=== PATIENT | female | born 1955 | race Caucasian/White ===

== ENCOUNTER 2018-04-24 11:00 | Day surgery (SDC) | payer OTHER, BC ==
[~2018-04-24] VITALS: Ht 170.2 cm; Wt 131.5 kg
[~2018-04-24 11:00] MED LIST: LEVOTHYROXINE100 MCG PO; OXYBUTYNIN CHLO10 MG PO
[2018-04-24] MEDS ORDERED: FLAXSEED OIL1000 M1 PO (11:35)
[2018-04-24] MEDS ORDERED: ASPIR-LOW81 MG PO (11:35)
[2018-04-24] MEDS ORDERED: GLUCOSAMINE-CH1 EA19 PO (11:36)
[2018-04-24] MEDS ORDERED: FISH OIL 1,0001 EAC3 PO (11:36)
[2018-04-24] MEDS ORDERED: MULTIVITAMINS1 EAC8 PO (11:36)
--- NOTE | 2018-04-24 15:18 | NUR ---
04/24/18 Kasia8 Vickie Gamble 1511 PT ARRIVED TO PACU ON 2L NC, PT DROWSY AND TALKING. PT DENIES NAUSEA AND PAIN. 1517 PT SITTING IN HIGH FOWLERS, O2 REMOVED.
--- NOTE | 2018-04-25 22:04 | OR ---
[facility] [address], [place] [address] Signed DATE OF OPERATION: 04/24/2018 SURGEON: Laura Vasquez MD PREOPERATIVE DIAGNOSES: 1. Episodic dysphagia. 2. Colon screening. POSTOPERATIVE DIAGNOSES: 1. Normal upper endoscopy. 2. Normal colonoscopy. PROCEDURE: 1. Esophagogastroduodenoscopy with biopsy. 2. Total colonoscopy to the cecum. ANESTHESIA: Intravenous sedation fentanyl 200 mcg and Versed 9 mg. INDICATION: This 63-year-old white woman is a patient of Brina Marcus of [facility] and has been referred for colonoscopy for screening. She has had colonoscopy in the past. She is symptom-free. Additionally, she complains of episodic dysphagia, and sometimes trouble breathing. She is thought possibly to have reflux symptoms. She is taking no medications for reflux, and does not have clinical reflux otherwise. She has no family history of esophageal, colon cancer, or stomach cancer. She is admitted at this time to undergo upper endoscopy and colonoscopy. She understands the risks of bleeding, infection, perforation, and so on. FINDINGS: On upper endoscopy, there was no finding of concern of the esophagus, stomach, or duodenum. CLOtest was negative. Biopsies were taken of the duodenum to assess for celiac disease. On colonoscopy, the prep was excellent. Complete colonoscopy was undertaken to the cecum. There was no sign of polyps, diverticular formation, colitis, or cancer. DESCRIPTION OF PROCEDURE: The patient was brought to the endoscopy suite, and given topical Hurricaine spray hypopharyngeal anesthesia and placed in lateral decubitus position. She was given Electronically Signed By: LAURA VASQUEZ MD 04/25/18 2204 PATIENT NAME: JUAN ANTONIO THIBODEAUX OPERATIVE REPORT DATE OF : 59 REPORT #: [id number] PHYSICIAN: LAURA VASQUEZ MD PCP: BRINA MARCUS NP REPORT IS CONFIDENTIAL AND NOT TO BE RELEASED WITHOUT AUTHORIZATION [facility] [address], [place] [address] Signed intravenous antibiotics previously. After satisfactory sedation, a bite block was placed and an Olympus video upper endoscope passed in the hypopharynx. The vocal cords were visualized and found to be normal. Scope was advanced to the esophagus throughout its length. It was normal. Scope was passed to the stomach was insufflated with air. Rugal folds were normal. Antral motility normal. The pylorus normal. Scope was passed through the pylorus into the duodenum, which was entirely normal. Biopsies were taken of the distal portion to assess for celiac disease. The scope was withdrawn. Biopsies taken of the antrum for both TRISH and pathologic testing. Retroflexed view was undertaken showing a normal flap valve. The scope was withdrawn to the distal esophagus where biopsies were obtained there, as well as the midesophagus to assess first eosinophilic esophagitis. The scope was then removed. The table was rotated and additional plans made for colonoscopy. Additional sedation was given. Digital rectal examination was found to be normal except for some minimal external hemorrhoidal changes. An Olympus video colonoscope was passed in the rectum and manipulated throughout the colon ultimately intubating the cecum itself. The ileocecal valve and appendiceal orifice were normal. The scope was withdrawn from that point, and examination throughout showed no sign of abnormality, specifically no polyps, diverticular formation, colitis, or cancer. Retroflex view was normal as well. Scope was removed. The patient was taken to recovery in good condition. CONCLUDING DIAGNOSIS: Normal upper endoscopy and colonoscopy. PLAN: Recommend repeat colonoscopy in 10 years, sooner if clinically indicated. We will review her pathology reports regarding dysphagia, but if her symptoms in that regard should worsen or become more prominent, she will let me know and motility testing may be considered. MD ESSIE Colón/MODL /[id number] Electronically Signed By: LAURA VASQUEZ MD 04/25/18 2204 PATIENT NAME: JUAN ANTONIO THIBODEAUX OPERATIVE REPORT DATE OF : 59 REPORT #: [id number] PHYSICIAN: LAURA VASQUEZ MD PCP: BRINA MARCUS NP REPORT IS CONFIDENTIAL AND NOT TO BE RELEASED WITHOUT AUTHORIZATION [address] [address] Signed cc: Brina Marcus NP Copies: BRINA MARCUS NP ~ Electronically Signed By: LAURA VASQUEZ MD 04/25/18 2204 PATIENT NAME: JUAN ANTONIO THIBODEAUX OPERATIVE REPORT DATE OF : 59 REPORT #: [id number] PHYSICIAN: LAURA VASQUEZ MD PCP: BRINA MARCUS NP REPORT IS CONFIDENTIAL AND NOT TO BE RELEASED WITHOUT AUTHORIZATION
== END 2018-04-24 15:50 | disposition home or self-care (01) ==
LOC: DS 11:00 → OPS 11:00
PROVIDERS: Surgery
PROC: 0DB78ZX Excision of Stomach, Pylorus, Via Natural or Artificial Opening Endoscopic, Diagnostic (ICD-10-PCS; 2018-04-24)
PROC: 0DB28ZX Excision of Middle Esophagus, Via Natural or Artificial Opening Endoscopic, Diagnostic (ICD-10-PCS; 2018-04-24)
PROC: 0DB38ZX Excision of Lower Esophagus, Via Natural or Artificial Opening Endoscopic, Diagnostic (ICD-10-PCS; 2018-04-24)
PROC: 0DJD8ZZ Inspection of Lower Intestinal Tract, Via Natural or Artificial Opening Endoscopic (ICD-10-PCS; principal; 2018-04-24 12:00)
PROC: 0DB98ZX Excision of Duodenum, Via Natural or Artificial Opening Endoscopic, Diagnostic (ICD-10-PCS; 2018-04-24 12:00)
DX: Z12.11 Encounter for screening for malignant neoplasm of colon (principal); K29.50 Unspecified chronic gastritis without bleeding; E03.9 Hypothyroidism, unspecified; Z79.899 Other long term (current) drug therapy; Z98.890 Other specified postprocedural states; Z96.651 Presence of right artificial knee joint; Z15.01 Genetic susceptibility to malignant neoplasm of breast
CPT/HCPCS: 99153; G0500; J0694; J2250; J3010; J7120